=== PATIENT | male | born 1980 | race Caucasian/White ===

== ENCOUNTER → 2023-09-19 07:56 | Outpatient (REF) | payer OTHER, SELFPAY | LOC: RAD 07:56 | PROVIDERS: ATTENDING PHYSICIAN Internal Medicine Endocrinology, Diabetes & Metabolism; FAMILY PHYSICIAN Family Medicine | DX: E10.21 Type 1 diabetes mellitus with diabetic nephropathy (principal) | CPT/HCPCS: 78264; A9541 ==

== ENCOUNTER 2024-09-23 06:29 | Day surgery (SDC) | payer OTHER, SELFPAY ==
[2024-09-23 10:07] VITALS: BMI 29.3
[2024-09-23 10:08] VITALS: BP 154/91; BMI 29.3
[2024-09-23 10:20] LABS: Glucose - Point of Care 271 mg/dl (70-99)
[2024-09-23] MEDS: NORMOSOL-R/PLASMALYTE-A 1000 IV (10:30)
[2024-09-23] MEDS: TYLENOL 1000 MG PO (10:31)
[2024-09-23 12:04] LABS: Glucose - Point of Care 194 mg/dl (70-99)
[2024-09-23 13:24] VITALS: BP 124/77
[2024-09-23 13:30] VITALS: BP 98/79
[2024-09-23 13:34] LABS: Glucose - Point of Care 118 mg/dl (70-99)
[2024-09-23 13:45] VITALS: BP 116/73
[2024-09-23 14:00] VITALS: BP 121/83
[2024-09-23 14:08] VITALS: BP 105/77
== END 2024-09-23 14:22 | disposition home or self-care (01) ==
LOC: SDS 06:29
PROVIDERS: ATTENDING PHYSICIAN Surgery
DX: L05.91 Pilonidal cyst without abscess (principal)
CPT/HCPCS: 11770; 88304; 82962